=== PATIENT | female | born 1980 | race African-American/Black ===

== ENCOUNTER 2017-11-14 10:37 | Emergency (ER) | payer MEDICAID, OTHER ==
[2017-11-14 10:46] VITALS: BP 122/80
--- NOTE | 2017-11-14 11:08 | ER Document Report ---
ED Fall - General Chief Complaint: Fall Stated Complaint: FALL/LEG AND ARM PAIN Time Seen by Provider: 11/14/17 10:52 Mode of Arrival: Ambulatory Information source: Patient, [facility] Records Notes: This 36-year-old female patient reports slipping at the top of the stairs going out the door yesterday, there is sick steps, she was able to put her right foot into a post to prevent falling the entire way down. She injured the right ankle , and the left neck and shoulder region. TRAVEL OUTSIDE OF THE [place] IN LAST 30 DAYS: No - Related data Allergies/Adverse Reactions: No Known Allergies Allergy (Verified 11/14/17 10:39) Past Medical History - General Information source: Patient, [facility] Records - Social History Smoking Status: Current Every Day Smoker Cigarette use (# per day): Yes Chew tobacco use (# tins/day): No Smoking Education Provided: No Frequency of alcohol use: Occasional Drug Abuse: Marijuana Occupation: Housekeeping at the [employer] Lives with: Family Family History: Reviewed & Not Pertinent Patient has suicidal ideation: No Patient has homicidal ideation: No - Past Medical History Cardiac Medical History: Reports: None Pulmonary Medical History: Reports: None EENT Medical History: Reports: None Neurological Medical History: Reports: None Endocrine Medical History: Reports: None Renal/ Medical History: Reports: None GI Medical History: Reports: None Musculoskeltal Medical History: Reports None Skin Medical History: Reports None Psychiatric Medical History: Reports: Hx Bipolar Disorder, Hx Depression Past Surgical History: Reports: Hx Section - Immunizations Hx Diphtheria, Pertussis, Tetanus Vaccination: Yes Review of Systems - Review of Systems Constitutional: No symptoms reported EENT: No symptoms reported Cardiovascular: No symptoms reported Respiratory: No symptoms reported Gastrointestinal: No symptoms reported Genitourinary: No symptoms reported Female Genitourinary: No symptoms reported Musculoskeletal: No symptoms reported Skin: No symptoms reported Hematologic/Lymphatic: No symptoms reported Neurological/Psychological: No symptoms reported Physical Exam - Vital signs Vitals: Temp Pulse Resp BP Pulse Ox 97.7 F 92 16 122/80 100 11/14/17 10:44 11/14/17 10:44 11/14/17 10:44 11/14/17 10:44 11/14/17 10:44 Interpretation: Normal - General General appearance: Appears well, Alert In distress: None - HEENT Head: Normocephalic, Atraumatic Eyes: Normal Pupils: PERRL Neck: Supple, Other - There is no tenderness over the cervical spinous processes. There is no tenderness over the right posterior cervical muscles and trapezius muscle. It is very tender over the left posterior cervical muscles going out into the trapezius down toward the shoulder. Supporting the weight of the patient's head allowing her to let her muscles in the shoulders relax feels better, letting go of the head increases pain and causes her to tense up. - Respiratory Respiratory status: No respiratory distress Chest status: Nontender Breath sounds: Normal - Cardiovascular Rhythm: Regular Heart sounds: Normal auscultation Murmur: No - Abdominal Inspection: Normal - Back Back: Normal - Extremities General upper extremity: Other - There is some tenderness to the left upper shoulder region and particularly the trapezius muscles and scapular muscles. Supporting the weight of her upper extremity by holding her forearm with elbow flexion and allowing her to relax the trapezius and shoulder muscles feels much better, letting go of the support causes her to have to tense up to protect the area and increases the pain. Ankle: Tender - The right lateral ankle is swollen over the distal fibula and lateral malleolus and quite tender. It is less tender posteriorly and satisfied with the auto ankle rules for low risk of fracture. It is also tender over the tip of the distal fibula. There is some tender swelling to the medial ankle. It is not tender over the cuboid of the foot. It is not particularly tender over the base of the fifth metatarsal on the right foot. - Neurological Neuro grossly intact: Yes - Psychological Associated symptoms: Normal affect, Normal mood - Skin Skin Temperature: Warm Skin Moisture: Dry Skin Color: Normal Course - Re-evaluation Re-evalutation: 11/14/17 12:37 The posterior splint was placed on the right ankle by the PCT. I examined the splint it fits well there is good capillary refill there is good stability and comfort provided to the ankle. Patient was fitted with crutches also, a right arm sling, and soft cervical collar. All of these are adjusted and fit well and provide the intended benefit. - Vital Signs Vital signs: Temp Pulse Resp BP Pulse Ox 97.7 F 92 16 122/80 100 11/14/17 10:44 11/14/17 10:44 11/14/17 10:44 11/14/17 10:44 11/14/17 10:44 - Diagnostic Test Radiology reviewed: Image reviewed, Reports reviewed - Soft tissue swelling seen , no fracture seen. Discharge - Discharge Clinical Impression: Strain of cervical portion of left trapezius muscle Inversion sprain of right ankle Qualifiers: Encounter type: initial encounter Qualified Code(s): S93.401A - Sprain of unspecified ligament of right ankle, initial encounter Strain of left trapezius muscle Qualifiers: Encounter type: initial encounter Qualified Code(s): S46.812A - Strain of other muscles, fascia and tendons at shoulder and upper arm level, left arm, initial encounter Condition: Stable Disposition: HOME, SELF-CARE Additional Instructions: Sprained Ankle: Your sprained ankle results from stretching or tearing of the ligaments which support the ankle. This usually results from twisting the foot inward and under. The ligaments will require time and protection in order to heal properly. Many ankle sprains are quite disabling, and should be taken seriously. The usual treatment for an ankle sprain is cold packs; protection with tape , splints, or wraps; elevation; and staying off the ankle for at least a day. As the ankle improves, you can walk IF it's not painful to bear weight. Sports are best postponed until healing is complete. More serious sprains usually require strengthening exercises after early healing. Your physician has assessed the seriousness of the ligament injury to your ankle. However, the treatment may change, depending on how your ankle progresses. If further exams were recommended, it is important that you follow through. Call the doctor if your foot becomes numb, painful, or severely swollen. Muscle Strain: You have strained the trapezius muscle on the left side from your posterior neck out toward your shoulder. This often occurs with strenuous exertion, or during an injury that suddenly stretches the muscle. The seriousness of a strain varies. Some strains heal within days, others cause problems for months. X-rays cannot show a muscle strain. X-rays are taken only if symptoms suggest that a fracture could be present. The usual treatment of a muscle strain is rest and ice packs. Sometimes, a sling, splint, or crutches may be necessary to rest the muscle. The muscle can be used again once pain subsides. Severe strains require a special exercise and stretching program to prevent permanent stiffness and disability. Your doctor will advise you if this will be necessary. Call the doctor immediately if pain or swelling becomes severe, or if numbness or discoloration develop. //////////////////////////////////////////////////////////////////////////////// //////////////////////////////////////////////////////////////////////////////// ////////////////// Use the soft collar to allow the muscles of your neck to relax with your head moving to stretch the muscles. Use the sling to allow the trapezius muscle on the left and the shoulder muscles to relax when you do not need to use the crutches. Use the crutches to get around to avoid weightbearing. Limit walking to just the bare necessities. Elevate your foot all the time. Use moist heat to the painful muscles of your neck and shoulder regions. Take the medications as prescribed for muscle tension and pain. Take 2 Aleve every 12 hours, or 4 OTC Ibuprofen 200mg tablets every 8 hours for inflammation discomfort. Follow-up with the [facility] for surgery this week to have your sprained ankle treated--call on Thursday to schedule an appointment for this week. RETURN TO THE EMERGENCY ROOM IF ANY NEW OR WORSENING SYMPTOMS. Prescriptions: Cyclobenzaprine HCl [Flexeril 5 mg Tablet] 5 mg PO TID PRN #15 tablet PRN Reason: Oxycodone HCl/Acetaminophen [Percocet 5-325 mg Tablet] 1 tab PO ASDIR PRN #15 tablet PRN Reason: Forms: Return to Work Referrals: [facility] ([facility] [Provider Group] - Follow up in 3-5 days (Call Thursday for an appointment this week.)
--- NOTE | 2017-11-14 12:01 | RADIOLOGY REPORT (SQ) ---
EXAM DESCRIPTION: ANKLE RIGHT COMPLETE COMPLETED DATE/TIME: 11/14/2017 11:54 am REASON FOR STUDY: slip and fall, tender swelling COMPARISON: None. NUMBER OF VIEWS: Three views. TECHNIQUE: AP, lateral, and oblique radiographic images acquired of the right ankle. LIMITATIONS: None. FINDINGS: MINERALIZATION: Normal. BONES: No acute fracture or dislocation. No worrisome bone lesions. Plantar calcaneal spurring. JOINTS: No effusions. SOFT TISSUES: Lateral soft tissue swelling. OTHER: No other significant finding. IMPRESSION: SOFT TISSUE SWELLING WITHOUT DEFINITE FRACTURE IDENTIFIED. CALCANEAL SPURRING. TECHNICAL DOCUMENTATION: JOB ID: [id number] [employer]- All Rights Reserved
== END 2017-11-14 12:25 | disposition home or self-care (01) ==
LOC: ER 10:37
DX: S93.401A Sprain of unspecified ligament of right ankle, initial encounter (principal); S29.012A Strain of muscle and tendon of back wall of thorax, initial encounter; W00.1XXA Fall from stairs and steps due to ice and snow, initial encounter; Y92.008 Other place in unspecified non-institutional (private) residence as the place of occurrence of the external cause; F17.210 Nicotine dependence, cigarettes, uncomplicated
CPT/HCPCS: 99283; 73610; 29515; L3650; L0172

== ENCOUNTER 2018-02-09 23:02 | Emergency (ER) | payer OTHER ==
[2018-02-09 23:43] VITALS: BP 126/81
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
== END 2018-02-10 01:08 | disposition home or self-care (01) ==
LOC: ER 23:02
DX: S16.1XXA Strain of muscle, fascia and tendon at neck level, initial encounter (principal); R42 Dizziness and giddiness; M54.2 Cervicalgia; V49.40XA Driver injured in collision with unspecified motor vehicles in traffic accident, initial encounter
CPT/HCPCS: 99283

== ENCOUNTER 2018-05-05 15:27 | Emergency (ER) | payer OTHER ==
[2018-05-05 15:36] VITALS: BP 120/84
[2018-05-05] MEDS ORDERED: OXYCODONE-ACETAMINOPHEN 5-325 MG TABLET PO ONE (16:59)
--- NOTE | 2018-05-05 17:02 | RADIOLOGY REPORT (SQ) ---
EXAM DESCRIPTION: SHOULDER LEFT 2 OR MORE VIEWS COMPLETED DATE/TIME: 05/05/2018 4:50 pm REASON FOR STUDY: fell, shoulder pain COMPARISON: None. NUMBER OF VIEWS: Three views. TECHNIQUE: Internal rotation, external rotation, and Y view images acquired of the left shoulder. LIMITATIONS: None. FINDINGS: MINERALIZATION: Normal. BONES: No acute fracture or dislocation. No worrisome bone lesions. Os acromiale which can be assoc iated with rotator cuff disease. JOINTS: No dislocation. VISUALIZED LUNGS AND RIBS: No pneumothorax. No rib fracture. SOFT TISSUES: No radiopaque foreign body. OTHER: No other significant finding. IMPRESSION: 1. No acute abnormality involving the left shoulder. 2. Os acromiale which can be associated with rotator cuff disease. TECHNICAL DOCUMENTATION: JOB ID: [id number] [employer]- All Rights Reserved Reading location - IP/workstation name: [email or web address]
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
== END 2018-05-05 17:41 | disposition home or self-care (01) ==
LOC: ER 15:27
DX: S40.012A Contusion of left shoulder, initial encounter (principal); S70.02XA Contusion of left hip, initial encounter; M25.512 Pain in left shoulder; M54.6 Pain in thoracic spine; V86.69XA Passenger of other special all-terrain or other off-road motor vehicle injured in nontraffic accident, initial encounter
CPT/HCPCS: 99283; 73030; L0120

== ENCOUNTER 2019-03-06 21:28 | Emergency (ER) | payer OTHER ==
[2019-03-06] MEDS ORDERED: NORMAL SALINE 1000 ML 1,000 ML IV ONE (22:50)
[2019-03-07 00:21] LABS: ABSOLUTE EOSINOPHILS # (AUTO) 0.3 10^3/uL (0.0-0.6); ABSOLUTE LYMPHOCYTES (AUTO) 1.3 10^3/uL (0.5-4.7); ABSOLUTE MONOCYTES (AUTO) 0.9 10^3/uL (0.1-1.4); BASOPHILS % (AUTO) 0.4 % (0-2); EOSINOPHILS % (AUTO) 3.2 % (0-6); HEMATOCRIT 37.4 % (36.0-47.0); HEMOGLOBIN 13.1 g/dL (12.0-15.5); LYMPHOCYTES % (AUTO) 12.2 % (13-45); MEAN CORPUSCULAR HEMOGLOBIN 32.8 pg (27.0-33.4); MEAN CORPUSCULAR HGB CONC 35.1 g/dL (32.0-36.0); MEAN CORPUSCULAR VOLUME 94 fl (80-97); MONOCYTES % (AUTO) 8.1 % (3-13); PLATELET COUNT 214 10^3/uL (150-450); RED BLOOD COUNT 3.99 10^6/uL (3.72-5.28); RED CELL DISTRIBUTION WIDTH 13.2 % (11.5-14.0); SEGMENTED NEUTROPHILS % (AUTO) 76.1 % (42-78); TOTAL CELLS COUNTED % (AUTO) 100 %; WHITE BLOOD COUNT 10.5 10^3/uL (4.0-10.5)
[2019-03-07 00:38] LABS: ALANINE AMINOTRANSFERASE 26 U/L (9-52); ALBUMIN 4.2 g/dL (3.5-5.0); ALKALINE PHOSPHATASE 49 U/L (38-126); ANION GAP 10 (5-19); ASPARTATE AMINO TRANSFERASE 14 U/L (14-36); BILIRUBIN,DIRECT 0.2 mg/dL (0.0-0.4); BILIRUBIN,TOTAL 0.3 mg/dL (0.2-1.3); BLOOD UREA NITROGEN 13 mg/dL (7-20); CALCIUM 9.5 mg/dL (8.4-10.2); CARBON DIOXIDE 26 mmol/L (22-30); CHLORIDE 105 mmol/L (98-107); GLUCOSE 95 mg/dL (75-110); SODIUM 141.1 mmol/L (137-145); TOTAL PROTEIN 7.2 g/dL (6.3-8.2)
--- NOTE | 2019-03-07 01:18 | ER Document Report ---
ED General - General Chief Complaint: Diarrhea Stated Complaint: DIARRHEA Time Seen by Provider: 03/06/19 22:43 Primary Care Provider: VASILIY LEONE PA-C [Primary Care Provider] - Follow up as needed Notes: Patient is a pleasant 38-year-old female presents with complaints of diarrhea. She says this been ongoing for several days. She denies any recent antibiotic use. She does the hospital. Had some cold chills. No abdominal pain. No chest pain. No shortness of breath. Some nasal congestion. No blood in the stool. Some nausea but no vomiting. No recent travel outside the country. No blood in stool. TRAVEL OUTSIDE OF THE [place] IN LAST 30 DAYS: No - Related Data Allergies/Adverse Reactions: No Known Allergies Allergy (Verified 05/05/18 15:29) Past Medical History - Social History Smoking Status: Never Smoker Frequency of alcohol use: None Drug Abuse: None Family History: Reviewed & Not Pertinent Renal/ Medical History: Denies: Hx Peritoneal Dialysis Psychiatric Medical History: Reports: Hx Bipolar Disorder, Hx Depression Past Surgical History: Reports: Hx Section - Immunizations Hx Diphtheria, Pertussis, Tetanus Vaccination: Yes Review of Systems - Review of Systems Notes: My Normal Review Basic REVIEW OF SYSTEMS: CONSTITUTIONAL : Has felt fatigued. EENT: Denies eye, ear, throat, or mouth pain or symptoms. Denies nasal or sinus congestion. CARDIOVASCULAR: Denies chest pain. RESPIRATORY: Denies cough, cold, or chest congestion. Denies shortness of breath, difficulty breathing, or wheezing. GASTROINTESTINAL: Denies abdominal pain. Denies nausea, vomiting, or diarrhea. Denies constipation. Last BM: MUSCULOSKELETAL: Denies neck or back pain or joint pain or swelling. SKIN: Denies rash or skin lesions. NEUROLOGICAL: Denies altered mental status or loss of consciousness. Denies headache. Denies weakness or paralysis or loss of use of either side. Denies problems with gait or speech. Denies sensory or motor loss. ALL OTHER SYSTEMS REVIEWED AND NEGATIVE. Physical Exam - Vital signs Vitals: Temp Pulse Resp BP Pulse Ox 98.1 F 84 18 125/89 H 99 03/06/19 22:03 03/06/19 22:03 03/06/19 22:03 03/06/19 22:03 03/06/19 22:03 - Notes Notes: General Appearance: Well nourished, alert, cooperative, no acute distress, no obvious discomfort. Well-appearing. Vitals: reviewed, See vital signs table. Head: no swelling or tenderness to the head Eyes: PERRL, EOMI, Conjuctiva clear Mouth: No decreasd moisture Lungs: No wheezing, No rales, No rhonci, No accessory muscle use, good air exchange bilaterally. Heart: Normal rate, Regular rythm, No murmur, no rub Abdomen: Normal BS, soft, No rigidity, No abdominal tenderness, No guarding, no rebound, no abdominal masses, no organomegaly Extremities: strength 5/5 in all extremities, good pulses in all extremities, no swelling or tenderness in the extremities, no edema. Skin: warm, dry, appropriate color, no rash Neuro: speech clear, oriented x 3, normal affect, responds appropriately to questions. Course - Re-evaluation Re-evalutation: 03/07/19 03:04 Patient clinically looks very well on exam. She had some diarrhea now for 3 to 4 days. Being that she has been fatigued through 1 to 2 weeks I did obtain thyroid studies which were negative. Her laboratory evaluation is unremarkable. She has no leukocytosis or fever. Informed her that I would write her an outpatient prescription for stool culture being that she was unable to provide a stool sample here. I informed her if it grows out anything we will call her back to start on appropriate antibiotics if needed. I encouraged her to follow- up with her doctor this week for reevaluation. I encouraged her return to ER immediately if she has abdominal pain, fevers, vomiting, bloody stools, or if she feels that she is worsening. Patient agrees with plan will be discharged home. Dictation of this chart was performed using voice recognition software; therefore, there may be some unintended grammatical errors. - Vital Signs Vital signs: Temp Pulse Resp BP Pulse Ox 98.1 F 66 18 123/59 L 99 03/07/19 02:08 03/07/19 02:08 03/06/19 22:03 03/07/19 02:08 03/07/19 02:08 - Laboratory Result Diagrams: 03/07/19 00:06 03/07/19 00:06 Laboratory results interpreted by me: 03/07/19 00:06 Lymphocytes % 12.2 L Discharge - Discharge Clinical Impression: Diarrhea Qualifiers: Diarrhea type: unspecified type Qualified Code(s): R19.7 - Diarrhea, unspecified Fatigue Qualifiers: Fatigue type: unspecified Qualified Code(s): R53.83 - Other fatigue Condition: Good Disposition: HOME, SELF-CARE Additional Instructions: Please follow up closely with your primary care physician in 2-3 days for reevaluation. please return to the ER immediately if you develop fevers, abdominal pain, blood y stools, vomiting, or feel that you are worsening in anyway. Please obtain a stool sample and bring it to the hospital lab with the provided prescription. We will contact you if it grows out any treatable bacteria. Please call the culture call back number at [phone] if you do not hear from us within 2 days after dropping off your stool sample. Forms: Return to Work, Follow-Up Laboratory Testing Referrals: VASILIY LEONE PA-C [Primary Care Provider] - 03/08/19
[2019-03-07 02:10] VITALS: BP 123/59
== END 2019-03-07 03:14 | disposition home or self-care (01) ==
LOC: ER 21:28
DX: R19.7 Diarrhea, unspecified (principal); R53.83 Other fatigue; R11.0 Nausea
CPT/HCPCS: 99284; 36415; 84443; 85025; 80053; J7030; 96360

== ENCOUNTER 2020-02-20 16:02 | Emergency (ER) | payer BC, OTHER ==
--- NOTE | 2020-02-20 16:37 | RADIOLOGY REPORT (SQ) ---
EXAM DESCRIPTION: CHEST SINGLE VIEW IMAGES COMPLETED DATE/TIME: 02/20/2020 4:19 pm REASON FOR STUDY: COUGH/CHEST PAIN COMPARISON: None. EXAM PARAMETERS: NUMBER OF VIEWS: One view. TECHNIQUE: An AP view of the chest was obtained. RADIATION DOSE: NA LIMITATIONS: None. FINDINGS: LUNGS AND PLEURA: No consolidation, pleural effusion or pneumothorax. MEDIASTINUM AND HILAR STRUCTURES: No mediastinal or hilar contour abnormality. HEART AND VASCULAR STRUCTURES: The cardiac silhouette and pulmonary vasculature are within normal casarez its. BONES: No acute findings. HARDWARE: None in the chest. OTHER: No other finding. IMPRESSION: No acute cardiopulmonary process. TECHNICAL DOCUMENTATION: JOB ID: [id number] 2010 [employer]- All Rights Reserved Reading location - IP/workstation name: [email or web address]
[2020-02-20] MEDS ORDERED: CETIRIZINE 10 MG TABLET PO ONE (16:50)
[2020-02-20] MEDS ORDERED: TERBUTALINE SULFATE INJ/PF 1 MG/1 ML SDV SUBCUT ONE (16:55)
[2020-02-20] MEDS ORDERED: ACETAMINOPHEN 325 MG TABLET PO ONE (16:55)
--- NOTE | 2020-02-20 17:26 | ER Document Report ---
HPI - HPI Time Seen by Provider: 02/20/20 16:33 Pain Level: 4 Context: Patient is a 39-year-old female presents emergency department with a chief complaint of a sore throat, cough, congestion, and body aches. Patient states that the right side of her chest hurts. She denies any past medical history. She does not take any medications. She teleconference with her primary care provider and was told to start allergy medication. She took [id number] allergy medicine from [employer] and states it did not help her. Patient states that she feels short of breath. - ROS Systems Reviewed and Negative: Yes All other systems reviewed and negative - CONSTITUTIONAL Constitutional: DENIES: Fever, Chills - EENT EENT: REPORTS: Sore Throat - NEURO Neurology: REPORTS: Headache. DENIES: Weakness, Vision blurred, Dizzinesss / Vertigo - RESPIRATORY Respiratory: REPORTS: Coughing. DENIES: Trouble Breathing - GASTROINTESTINAL Gastrointestinal: DENIES: Abdominal Pain, Nausea, Patient vomiting - REPRODUCTIVE Reproductive: DENIES: : - MUSCULOSKELETAL Musculoskeletal: DENIES: Extremity pain - DERM Skin Color: Normal Skin Problems: None Past Medical History - General Information source: Patient - Social History Smoking Status: Current Every Day Smoker Drug Abuse: Marijuana Family History: Reviewed & Not Pertinent Renal/ Medical History: Denies: Hx Peritoneal Dialysis Psychiatric Medical History: Reports: Hx Bipolar Disorder, Hx Depression Past Surgical History: Reports: Hx Section - Immunizations Hx Diphtheria, Pertussis, Tetanus Vaccination: Yes Vertical Provider Document - CONSTITUTIONAL Agree With Documented VS: Yes Exam Limitations: No Limitations General Appearance: No Apparent Distress - INFECTION CONTROL TRAVEL OUTSIDE OF THE [place] IN LAST 30 DAYS: No - HEENT HEENT: Atraumatic, Pharyngeal Tenderness. negative: Pharyngeal Exudate - NECK Neck: Normal Inspection - RESPIRATORY Respiratory: Breath Sounds Normal, No Respiratory Distress, Wheezing - Expiratory - CARDIOVASCULAR Cardiovascular: Regular Rate, Regular Rhythm Pulses: Normal: Radial - MUSCULOSKELETAL/EXTREMETIES Musculoskeletal/Extremeties: FROM - NEURO Level of Consciousness: Awake, Alert, Appropriate - DERM Integumentary: Warm, Dry, No Rash Course - Re-evaluation Re-evalutation: 02/20/20 18:18 Patient states that she feels better after receiving a dose of terbutaline, Tylenol, and cetirizine. Patient has edema and erythema noted to her nasal mucosa. We will start her on Flonase to help with allergies. I will write her formal prescription for cetirizine. Patient is being tested for COVID 19, as we are in a pandemic. Follow-up precautions were given. Verbal discharge instructions were given to the patient. They verbalized understanding. They are stable for discharge. - Vital Signs Vital signs: Temp Pulse Resp BP Pulse Ox 98.5 F 77 20 132/99 H 97 02/20/20 16:16 02/20/20 16:16 02/20/20 16:16 02/20/20 16:16 02/20/20 16:16 Discharge - Discharge Clinical Impression: Suspected COVID-19 virus infection, Sore throat Condition: Stable Disposition: HOME, SELF-CARE Additional Instructions: You are seen today in the emergency department for a sore throat, body aches, and generally not feeling well. Your rapid strep test is negative. Your chest x-ray is normal. Please start using an inhaler and use as needed. You are also being started on Flonase and cetirizine to help with your allergies. Please take them as directed. You are also being prescribed an inhaler. Follow-up with your primary care provider. You are also being tested for COVID at 19. Please make sure you self quarantine. If your results come back negative, you can come out of quarantine, but if they are positive, make sure you stay at home for a total of 2 weeks. Take Tylenol 1000 mg every 6 hours as needed for pain, fever, or body aches. Make sure you wash your hands frequently. Try to stay away from others as much as you can. Prescriptions: Cetirizine HCl [All Day Allergy] 10 mg PO DAILY #30 tablet Fluticasone Propionate [Flonase Nasal Giddings 50 Mcg/G[place]ings 16 gm] 2 sprays NASL DAILY #1 inhaler Albuterol Sulfate [Proair HFA Inhalation Aerosol 8.5 gm MDI] 2 puff IH Q4H PRN #1 mdi PRN Reason: Forms: Return to Work Referrals: VASILIY LEONE PA-C [NO LOCAL MD] - Follow up in 3-5 days
--- NOTE | 2020-02-20 18:24 | RADIOLOGY REPORT (SQ) ---
EXAM DESCRIPTION: CHEST SINGLE VIEW IMAGES COMPLETED DATE/TIME: 02/20/2020 4:57 pm REASON FOR STUDY: cough COMPARISON: None. EXAM PARAMETERS: NUMBER OF VIEWS: One view. TECHNIQUE: Single frontal radiographic view of the chest acquired. RADIATION DOSE: NA LIMITATIONS: None. FINDINGS: LUNGS AND PLEURA: No opacities, masses or pneumothorax. No pleural effusion. MEDIASTINUM AND HILAR STRUCTURES: No masses. Contour normal. HEART AND VASCULAR STRUCTURES: Heart normal in size. Normal vasculature. BONES: No acute findings. HARDWARE: None in the chest. OTHER: No other significant finding. IMPRESSION: NO ACUTE RADIOGRAPHIC FINDING IN THE CHEST. TECHNICAL DOCUMENTATION: JOB ID: [id number] 2010 [employer]- All Rights Reserved Reading location - IP/workstation name: [email or web address]
--- NOTE | 2020-02-20 18:35 | EKG REPORT ---
SEVERITY:- NORMAL ECG - SINUS RHYTHM : Confirmed by: Clayton Mario MD 20-Feb-2020 18:34:58
[2020-02-20 18:51] VITALS: BP 121/73
== END 2020-02-20 18:53 | disposition home or self-care (01) ==
LOC: ER 16:02
DX: J02.9 Acute pharyngitis, unspecified (principal); R05 Cough; R09.81 Nasal congestion; M79.10 Myalgia, unspecified site; R51 Headache; Z20.828 Contact with and (suspected) exposure to other viral communicable diseases; F17.200 Nicotine dependence, unspecified, uncomplicated; F12.10 Cannabis abuse, uncomplicated
CPT/HCPCS: 93005; 99284; 96372; 87070; 87880; 87635; 71045; 93010; J3105

== ENCOUNTER 2020-08-02 07:35 | Emergency (ER) | payer BC, MEDICAID, OTHER ==
[2020-08-02 07:40] VITALS: BP 134/87
[2020-08-02] MEDS ORDERED: KETOROLAC TROMETHAMINE 60 MG/2 ML SDV IM ONE (08:14)
--- NOTE | 2020-08-02 08:19 | ER Document Report ---
ED General - General Chief Complaint: Shoulder Pain Stated Complaint: RIGHT SHOULDER/NECK PAIN Time Seen by Provider: 08/02/20 08:05 Primary Care Provider: VASILIY LEONE PA-C [Primary Care Provider] - Follow up as needed TRAVEL OUTSIDE OF THE [place] IN LAST 30 DAYS: No - HPI Notes: Chief complaint: Right neck and shoulder pain History of present illness: 39-year-old female seen here several times in the past for minor musculoskeletal issues taking no regular medications with no known allergies now presents with several days history of right posterior neck pain radiating into shoulder aggravated by movement of neck and right upper extremity. She denies any specific injury. She does a good bit of lifting and repetitive motion activities working in the [employer] at [employer]. She is been doing his work for about 18 months. Patient denies any known history of renal or hepatic disease and specifically denies any known history of peptic ulcer disease or bleeding problems. - Related Data Allergies/Adverse Reactions: No Known Allergies Allergy (Verified 08/02/20 08:04) Past Medical History - General Information source: Patient, [facility] Records - Social History Smoking Status: Current Every Day Smoker Chew tobacco use (# tins/day): No Frequency of alcohol use: None Drug Abuse: None Family History: Reviewed & Not Pertinent - Past Medical History Cardiac Medical History: Reports: None Renal/ Medical History: Denies: Hx Peritoneal Dialysis Psychiatric Medical History: Reports: Hx Bipolar Disorder, Hx Depression Past Surgical History: Reports: Hx Section - Immunizations Hx Diphtheria, Pertussis, Tetanus Vaccination: Yes Review of Systems - Review of Systems Notes: Constitutional: Negative for fever. HENT: Negative for sore throat. Eyes: Negative for visual changes. Cardiovascular: Negative for chest pain. Respiratory: Negative for shortness of breath. Gastrointestinal: Negative for abdominal pain, vomiting or diarrhea. Genitourinary: Negative for dysuria. Musculoskeletal: As per HPI. Skin: Negative for rash. Neurological: Negative for headaches, weakness or numbness. 10 point ROS negative except as marked above and in HPI. Physical Exam - Vital signs Vitals: Temp Pulse Resp BP Pulse Ox 97.6 F 71 16 134/87 H 100 08/02/20 07:39 08/02/20 07:39 08/02/20 07:39 08/02/20 07:39 08/02/20 07:39 - Notes Notes: GENERAL: Well-developed well-nourished appearing in no acute distress. SKIN: Good turgor no rashes. HEAD: Normocephalic atraumatic. EYES: PERRLA. EOMI. Conjunctivae and sclerae clear. EARS: CANALS AND TMS CLEAR. NOSE: CLEAR. MOUTH: Moist mucosa. Good dentition. No stridor or edema. No drooling. NECK: Palpable posterior cervical muscular spasm on the right and she is tenderness area. Pain is aggravated by rotation of her neck to the right side. No masses or thyromegaly. No adenopathy. Carotids 2+ without bruits. No JVD. BACK: Symmetrical without tenderness. CHEST: Respirations unlabored. Breath sounds clear and symmetrical. HEART: Regular rhythm. No murmur gallop or rub. ABDOMEN: Soft nontender without masses, organomegaly or rebound. Bowel sounds normally active. No bruits. GENITALIA: Deferred. EXTREMITIES: Full range of motion of the right shoulder with no swelling, redness or crepitus appreciated. No edema. No calf tenderness. Cap refill less than 1.5 seconds. Dorsalis pedis and posterior tibial pulses 3+ and symmetrical. NEUROLOGICAL: GCS 15. Alert and oriented x3. Normal gait. Fluent speech. Cranial nerves II through XII intact. Deep tendon reflexes 2+ and symmetrical. Sensorimotor and cerebellar normal. Normal tone. PSYCHIATRIC: Appropriate affect. Course - Re-evaluation Re-evalutation: 08/02/20 11:17 Clinically I felt patient had cervical muscular strain versus cervical radiculitis. She was given IM Toradol with good relief of symptoms. Plain films of the C-spine were obtained showing interspace narrowing at C5-C6 with moderate degenerative changes. No fracture evident. Before I could get back to review findings with patient she eloped from the department. - Vital Signs Vital signs: Temp Pulse Resp BP Pulse Ox 97.6 F 71 16 134/87 H 100 08/02/20 07:39 08/02/20 07:39 08/02/20 07:39 08/02/20 07:39 08/02/20 07:39 - Diagnostic Test Radiology reviewed: Reports reviewed - C-spine series per radiologist: Degenerative changes with interspace narrowing C5-C6. Discharge - Discharge Clinical Impression: Cervical radiculitis Disposition: ELOPED Referrals: VASILIY LEONE PA-C [Primary Care Provider] - Follow up as needed
--- NOTE | 2020-08-02 09:02 | RADIOLOGY REPORT (SQ) ---
EXAM DESCRIPTION: CERV SP 4 OR 5 VIEWS IMAGES COMPLETED DATE/TIME: 08/02/2020 8:40 am REASON FOR STUDY: right side neck pain radiated to shoulder COMPARISON: None. NUMBER OF VIEWS: Five views. TECHNIQUE: AP, lateral, obliques and odontoid radiographic images acquired of the cervical spine. LIMITATIONS: None. FINDINGS: MINERALIZATION: Normal. ALIGNMENT: Grade 1 anterolisthesis C6 relative to C5. VERTEBRAE: Vertebral bodies of normal height. DISCS: Disc space narrowing and osteophyte formation C5-6. FORAMINA: No osteophytes or foraminal narrowing. LATERAL AND POSTERIOR ELEMENTS: Facets, lateral masses and spinous processes without significant find ings. HARDWARE: None in the spine. SOFT TISSUES: No masses or calcifications. Lung apices clear. OTHER: No other significant finding. IMPRESSION: Cervical disc disease and mild malalignment C5-6. TECHNICAL DOCUMENTATION: JOB ID: [id number] 2010 [employer]- All Rights Reserved Reading location - IP/workstation name: [email or web address]
== END 2020-08-02 11:05 | disposition left against medical advice (07) ==
LOC: ER 07:35
DX: M54.12 Radiculopathy, cervical region (principal); M25.511 Pain in right shoulder; M54.2 Cervicalgia; M79.601 Pain in right arm; X50.9XXA Other and unspecified overexertion or strenuous movements or postures, initial encounter; F17.200 Nicotine dependence, unspecified, uncomplicated
CPT/HCPCS: 99281; 96372; 72050; J1885